=== PATIENT | female | born 1950 | race Caucasian/White ===

== ENCOUNTER 2018-09-02 10:10 | Day surgery (SDC) | payer MEDICARE, BC ==
[~2018-09-02] VITALS: Ht 160 cm; Wt 74.3 kg
[~2018-09-02 10:10] MED LIST: AMLO-20 PO; ASPI-817 PO; MELO15TA30 PO; METO-335 PO; ONDA4TAB96 PO
[2018-09-02 11:12] VITALS: Ht 160 cm; Wt 74.3 kg
[2018-09-02] MEDS ORDERED: SIMV80TA18 PO (11:19)
[2018-09-02] MEDS ORDERED: EZET10TA31 PO (11:19)
[2018-09-02] MEDS ORDERED: AMIO200T4 PO (11:19)
--- NOTE | 2018-09-02 11:39 | PREAC ---
Date/Time of Note Date/Time of Note DATE: 09/02/18 TIME: 11:37 Anesthesia Eval and Record Evaluation Time Pre-Procedure Interview DATE: 09/02/18 TIME: 11:37 Age 68 Sex female NPO: 8 hrs Preoperative diagnosis rectal bleeding Planned procedure colonoscopy Past Medical History Past Medical History: Includes Cardio: HTN, Dyslipidemia, CAD, CABG, Other (moderate aortic stenosis) Neuro: CVA Surgery & Anesthesia Issues No known issue Meds Anticoagulation: No Beta Jodi within 24 hr: Yes Reported Medications Simvastatin* (Simvastatin*) 80 Mg Tablet, 40 MG PO QHS, #30 TAB 09/02/18 Ezetimibe* (Zetia*) 10 Mg Tablet, 10 MG PO DAILY, TAB 09/02/18 Amiodarone Hcl* (Amiodarone Hcl*) 200 Mg Tablet, 200 MG PO DAILY, #30 TAB 09/02/18 Metoprolol Succinate* (Toprol XL*) 25 Mg Tab.sr.24h, 25 MG PO DAILY, #30 04/09/15 Amlodipine-Benazepril (Amlodipine-Benazepril) 5-20 Mg Capsule, 1 CAP PO DAILY 04/09/15 Aspirin* (Aspirin* EC) 81 Mg Tablet.dr, 81 MG PO DAILY 04/09/15 Discontinued Reported Medications Ondansetron Hcl* (Ondansetron Hcl*) 4 mg -ODT Tab.disper, 4 MG PO Q6 PRN for NAUSEA AND/OR VOMITING 04/09/15 Meloxicam* (Mobic*) 15 Mg Tablet, 15 MG PO DAILY, #30 04/09/15 Meds reviewed: Yes Allergies Coded Allergies: No Known Drug Allergies (Verified Allergy, Unknown, 04/09/15) Allergies Reviewed: Yes Labs/Studies Labs Reviewed: Other (NA) test: N/A Studies: ECG Pre-procedure Exam Airway: Adequate mouth opening Mallampati: Mallampati II Teeth: Normal Lung: Normal Heart: Normal ASA Physical Status ASA physical status: 4 Emergency: None Planned Anesthetic General/MAC: MAC Pre-operative Attestations Prior to commencing anesthesia and surgery, the patient was re-evaluated, there was verification of: *The patient's identity *The results of appropriate recent lab work and preoperative vital signs *The above evaluation not changing prior to induction *Anesthetic plan, risk benefits, alternative and complications discussed with patient/family; questions answered; patient/family understands, accepts and wishes to proceed. MAGALI EDWARDS September 02, 2018 11:39
[2018-09-02] MEDS ORDERED: ETOMIDATE 20 MG INJ ONE (11:40)
[2018-09-02] MEDS ORDERED: LIDOCAINE 100 MG SYRINGE ONE (11:40)
[2018-09-02] MEDS ORDERED: PROPOFOL 40 ML ONE (11:40)
[2018-09-02 11:50] VITALS: BP 151/74; PULSE 73; RESP 20
[2018-09-02] MEDS ORDERED: LABETALOL HCL 20MG INJ IV PRN (12:00)
[2018-09-02] MEDS ORDERED: hydrALAzine 20 MG INJ IV PRN (12:00)
--- NOTE | 2018-09-02 12:27 | PAC ---
Date/Time of Note Date/Time of Note DATE: 09/02/18 TIME: 12:26 Post-Anesthesia Notes Post-Anesthesia Note Activity: WNL Respiratory function: WNL Cardiovascular function: WNL Mental status: Baseline Pain reasonably controlled: Yes Hydration appropriate: Yes Nausea/Vomiting absent: Yes Comments BP 118/76 spo2 100% HR 65 RR 16 temp 98.6F MAGALI EDWARDS September 02, 2018 12:27
--- NOTE | 2018-09-03 08:01 | CONS ---
DATE OF ADMISSION: 09/02/2018 DATE OF CONSULTATION: PATIENT NAME: SAMY LOZOYA TYPE OF CONSULTATION: Preoperative gastroenterology. Dear Dr. Hinojosa: I thank you very much for this kind referral. HISTORY OF PRESENT ILLNESS: Ms. Codie Lozoya is a 68-year-old female patient who has been referr ed to me for further evaluation of change in the bowel habit and rectal bleeding. No past history of colon neoplasm. The patient never had screening colonoscopy. Her appetite has been good, and she i s not losing any weight. No upper abdominal pain. The patient is on baby aspirin a day. Status pos t cholecystectomy. No history of liver disease. She has hypertension. Not a diabetic. The patient has got coronary artery disease and she is status post coronary artery bypass graft surgery. The pa tient also had prosthetic valve replacement for aortic stenosis. No kidney disease. She is status p ost a stroke. She had breast cancer for which she has undergone mastectomy with chemotherapy. She h ad thyroid surgery. She had appendectomy. SOCIAL HISTORY: Nonsmoker. No alcohol abuse. FAMILY HISTORY: No family history of gastrointestinal tract neoplasm. ALLERGIES: NO DRUG ALLERGIES. MEDICATIONS: 1. Amlodipine 5 mg p.o. daily. 2. Benazepril 10 mg p.o. daily. 3. Metoprolol 25 mg p.o. daily. 4. Amiodarone 200 mg p.o. daily. 5. Aspirin 81 mg p.o. daily. 6. Zetia 10 mg p.o. daily. 7. Simvastatin 40 mg p.o. daily. PHYSICAL EXAMINATION: VITAL SIGNS: She is 5 feet 2 inches tall and weighs 165 pounds. BMI 30. Blood pressure 134/86. HEART: Normal heart sounds. The patient has got a systolic murmur in the aortic area. LUNGS: Clear. ABDOMEN: Soft, no masses. Normal bowel sounds. NEUROLOGIC: Normal neurological exam. IMPRESSION: 1. Rectal bleeding. 2. The patient never had screening colonoscopy. 3. Rectal examination deferred per the patient's request and it will be done at the time of colonosc opy. 4. Hypertension. 5. Coronary artery disease and status post coronary artery bypass graft surgery. 6. Aortic stenosis and status post valve replacement surgery. 7. Hyperlipidemia. 8. The patient is on baby aspirin a day. 9. Status post surgery and chemotherapy for breast cancer. 10. Status post cholecystectomy, thyroid cancer surgery and appendectomy. 11. Elevated body mass index. PLAN: 1. Colonoscopy for further evaluation. 2. Because of the multiple medical problems, the patient will need monitored anesthesia care. 3. The patient was advised to lose weight and follow up with the primary MD for the management of el evated BMI and hypertension. The procedure and possible complications are well explained to the patient. She understands and cons ents to the procedure. I thank you once again. With warmest personal regards, Dictated By: FERNANDO CLARK MD GD/NTS Conf#: [id number] DID#: [id number] CC: CLEOPATRA HINOJOSA MD;*EndCC*
== END 2018-09-02 15:23 | disposition home or self-care (01) ==
LOC: GIL 10:10
PROVIDERS: ATTEND Internal Medicine Gastroenterology
DX: R19.4 Change in bowel habit (principal); K64.8 Other hemorrhoids; D12.5 Benign neoplasm of sigmoid colon; D12.3 Benign neoplasm of transverse colon
CPT/HCPCS: 45380; 88305; J2001